=== PATIENT | female | born 1960 | race Caucasian/White ===

== ENCOUNTER 2017-08-23 08:44 | Outpatient (CLI) | payer OTHER ==
[~2017-08-23 08:44] MED LIST: CALAN SR120 MG PO; SYNTHROID112 MCG PO
== END 2017-08-23 08:54 | disposition home or self-care (01) ==
LOC: LAB 08:44
DX: Z00.00 Encounter for general adult medical examination without abnormal findings (principal); Z11.1 Encounter for screening for respiratory tuberculosis

== ENCOUNTER 2017-12-07 11:44 | Outpatient (CLI) | payer OTHER | END 2017-12-07 17:00 | disposition home or self-care (01) | LOC: SONOGRAMA 11:44 | DX: K80.00 Calculus of gallbladder with acute cholecystitis without obstruction (principal) ==

== ENCOUNTER 2019-02-09 07:00 | Day surgery (SDC) | payer OTHER | END 2019-02-09 12:00 | disposition home or self-care (01) | LOC: AMB-ENDOS 07:00 → ADM 04-08 13:00 | DX: D12.0 Benign neoplasm of cecum (principal); D12.2 Benign neoplasm of ascending colon; D12.3 Benign neoplasm of transverse colon; D12.4 Benign neoplasm of descending colon; K29.50 Unspecified chronic gastritis without bleeding ==

== ENCOUNTER 2019-10-24 09:28 | Outpatient (CLI) | payer OTHER | END 2019-10-24 09:35 | disposition home or self-care (01) | LOC: RAD 09:28 | PROVIDERS: ATTEND Radiology Diagnostic Radiology | DX: R05 Cough (principal) ==

== ENCOUNTER 2020-04-02 14:41 | Outpatient (CLI) | payer OTHER | END 2020-04-02 14:45 | disposition HB | LOC: RAD 14:41 | PROVIDERS: ATTEND Obstetrics & Gynecology Gynecology | DX: Z01.811 Encounter for preprocedural respiratory examination (principal) ==

== ENCOUNTER 2020-06-05 13:42 | Outpatient (CLI) | payer OTHER | END 2020-06-05 15:10 | disposition home or self-care (01) | LOC: NUCLEAR 13:42 | PROVIDERS: ATTEND Surgery | DX: M81.0 Age-related osteoporosis without current pathological fracture (principal) ==

== ENCOUNTER → 2020-10-08 | Outpatient (CLI) | payer OTHER | END | disposition home or self-care (01) | LOC: RAD 09:53 | PROVIDERS: ATTEND Orthopaedic Surgery Orthopaedic Surgery of the Spine | DX: M41.56 Other secondary scoliosis, lumbar region (principal); M50.30 Other cervical disc degeneration, unspecified cervical region; J45.909 Unspecified asthma, uncomplicated ==

== ENCOUNTER 2020-11-26 15:03 | Outpatient (CLI) | payer OTHER | END 2020-11-26 15:18 | disposition home or self-care (01) | LOC: MRI 15:03 | PROVIDERS: ATTEND Obstetrics & Gynecology Gynecology | DX: M47.22 Other spondylosis with radiculopathy, cervical region (principal); M47.23 Other spondylosis with radiculopathy, cervicothoracic region | CPT/HCPCS: 72141; 72146 ==

== ENCOUNTER 2021-01-29 07:00 | Outpatient (CLI) | payer OTHER | END 2021-01-29 07:25 | disposition home or self-care (01) | LOC: PPH VACUNA 07:00 | PROVIDERS: ATTEND Emergency Medicine Pediatric Emergency Medicine | DX: Z23 Encounter for immunization (principal) ==

== ENCOUNTER 2021-04-26 13:33 | Outpatient (CLI) | payer OTHER | END 2021-04-26 13:37 | disposition home or self-care (01) | LOC: NUCLEAR 13:33 | DX: I87.2 Venous insufficiency (chronic) (peripheral) (principal) ==

== ENCOUNTER 2021-07-15 10:51 | Outpatient (CLI) | payer OTHER | END 2021-07-15 11:30 | disposition home or self-care (01) | LOC: RAD 10:51 | PROVIDERS: ATTEND Obstetrics & Gynecology Gynecology | DX: I10 Essential (primary) hypertension (principal) ==

== ENCOUNTER 2021-08-24 13:07 | Outpatient (CLI) | payer OTHER | END 2021-08-24 15:00 | disposition home or self-care (01) | LOC: LAB 13:07 | PROVIDERS: ATTEND Emergency Medicine | DX: Z20.828 Contact with and (suspected) exposure to other viral communicable diseases (principal) ==

== ENCOUNTER 2022-01-13 14:18 | Outpatient (CLI) | payer OTHER | END 2022-01-13 14:23 | disposition home or self-care (01) | LOC: PPH VACUNA 14:18 | PROVIDERS: ATTEND Emergency Medicine Pediatric Emergency Medicine | DX: Z23 Encounter for immunization (principal) ==

== ENCOUNTER 2022-08-12 11:45 | Outpatient (CLI) | payer OTHER | END 2022-08-12 12:10 | disposition home or self-care (01) | LOC: RAD 11:45 | PROVIDERS: ATTEND Obstetrics & Gynecology Gynecology | DX: I10 Essential (primary) hypertension (principal) ==

== ENCOUNTER 2022-09-20 13:24 | Outpatient (CLI) | payer OTHER | END 2022-09-20 13:46 | disposition home or self-care (01) | LOC: TOM 13:24 | PROVIDERS: ATTEND Orthopaedic Surgery | DX: S09.90XA Unspecified injury of head, initial encounter (principal) ==

== ENCOUNTER 2023-02-16 12:18 | Outpatient (CLI) | payer OTHER | END 2023-02-16 12:22 | disposition home or self-care (01) | LOC: RAD 12:18 | PROVIDERS: ATTEND Anesthesiology | DX: Z01.89 Encounter for other specified special examinations (principal); Z88.6 Allergy status to analgesic agent; Z91.040 Latex allergy status ==

== ENCOUNTER 2024-01-18 10:05 | Outpatient (CLI) | payer OTHER | END 2024-01-18 10:06 | disposition home or self-care (01) | LOC: RAD 10:05 | PROVIDERS: ATTEND Obstetrics & Gynecology Gynecology | DX: J20.9 Acute bronchitis, unspecified (principal) ==

== ENCOUNTER 2024-05-23 08:05 | Outpatient (CLI) | payer OTHER | END 2024-05-23 08:08 | disposition home or self-care (01) | LOC: RAD 08:05 | PROVIDERS: ATTEND Obstetrics & Gynecology Gynecology | DX: I10 Essential (primary) hypertension (principal) ==

== ENCOUNTER 2025-04-10 14:00 | Day surgery (SDC) | payer OTHER ==
[~2025-04-10 14:00] MED LIST changes: +BUPIVACAINE HCL/MPF 0.5% 30ML VIAL ONE; +CEFAZOLIN SODIUM 1,000 MG VIAL ONE; +DEXAMETHASONE SODIUM PHOSPHATE 4 MG/ML VIAL ONE; +LIDOCAINE HCL 1%/EPINEPHRINE 20ML VIAL IJ ONE; +LIPITOR20 MG PO; +METHYLPREDNISOLONE ACETATE 80 MG/ML VIAL ONE; +PRISTIQ ER100 MG PO; +SUGAMMADEX SODIUM 200 MG/2 ML VIAL IV ONE
== END 2025-04-10 14:10 | disposition home or self-care (01) ==
LOC: CIR.AMB 14:00
PROVIDERS: ATTEND Orthopaedic Surgery
DX: S42.021A Displaced fracture of shaft of right clavicle, initial encounter for closed fracture (principal); S43.121A Dislocation of right acromioclavicular joint, 100%-200% displacement, initial encounter; Z91.040 Latex allergy status
CPT/HCPCS: 23515; 23550; L8699